=== PATIENT | female | born 1985 | race Caucasian/White ===

== ENCOUNTER 2017-09-04 11:57 | Day surgery (SDC) | payer OTHER ==
[~2017-09-04] VITALS: Ht 154.9 cm; Wt 54.0 kg
[2017-09-04 13:02] LABS: BASOPHILS % 0.7 % (0.0-2.0); EOSINOPHILS % 0.6 % (0.0-5.0); HEMATOCRIT. 40.4 % (36.0-48.0); HEMOGLOBIN. 13.8 g/dL (12.0-16.0); MEAN CORPUSCULAR HEMOGLOBIN 30.2 pg (28.0-32.0); MEAN CORPUSCULAR VOLUME 88.5 fL (81.0-99.0); MEAN PLATELET VOLUME 7.8 fl (7.4-10.4); MONOCYTES % 6.6 % (2.0-8.0); NEUTROPHILS % 59.1 % (40.0-76.0); PLATELET 258 x1000/uL (130-400); RED BLOOD CELL COUNT 4.57 mill/uL (4.2-5.4); RED CELL DISTRIBUTION WIDTH 12.9 % (11.6-14.6)
[2017-09-04 13:04] LABS: CLARITY URINE CLEAR (CLEAR); COLOR URINE YELLOW (YELLOW); GLUCOSE URINE NEGATIVE (NEGATIVE); KETONES URINE NEGATIVE (NEGATIVE); LEUKOCYTE ESTERASE URINE NEGATIVE (NEGATIVE); NITRITE URINE NEGATIVE (NEGATIVE); OCCULT BLOOD URINE TRACE (NEGATIVE); PH URINE 5.5 (4.5-8.0); PROTEIN URINE NEGATIVE (NEGATIVE); SPECIFIC GRAVITY URINE 1.026 (1.005-1.030); UROBILINOGEN URINE 0.2 E.U./dL (0.2-1.0)
[2017-09-04 13:08] LABS: UCG SCREEN NEGATIVE
[2017-09-04 13:13] LABS: INR 1.1; PARTIAL THROMBOPLASTIN TIME 27.2 sec (23.4-31.0); PROTHROMBIN TIME 11.1 sec (9.4-11.6)
[2017-09-04] MEDS ORDERED: SODIUM CHLORIDE 0.9% 1,000 ML IV SCH ×2 (13:30→17:00)
[2017-09-04] MEDS ORDERED: MIDAZOLAM HCL 2 MG/2 ML VIAL ONE (15:55)
[2017-09-04] MEDS ORDERED: ROCURONIUM BROMIDE 10MG/ML VIAL 5ML IV ONE (15:56)
[2017-09-04] MEDS ORDERED: LIDOCAINE HCL 1% 20ML VIAL (Pyxis) INJ ONE (15:56)
[2017-09-04] MEDS ORDERED: FENTANYL CITRATE/PF 50MCG/ML 2ML VIAL ONE (15:56)
[2017-09-04] MEDS ORDERED: PROPOFOL 200MG/20ML VIAL IV ONE (15:56)
[2017-09-04] MEDS ORDERED: METOCLOPRAMIDE HCL 10MG/2ML VIAL ONE (16:22)
[2017-09-04] MEDS ORDERED: ONDANSETRON HCL 4MG/2ML VIAL ONE (16:22)
[2017-09-04] MEDS ORDERED: DEXAMETHASONE 4MG/ML 1ML VIAL ONE (16:22)
[2017-09-04] MEDS ORDERED: CEFAZOLIN SODIUM 1000MG/VIAL ONE (16:23)
[2017-09-04] MEDS ORDERED: SKIN ADHESIVE 0.7 GM EA TOP ONE (16:45)
[2017-09-04] MEDS ORDERED: ONDANSETRON HCL 4MG/2ML VIAL IV PRN (17:00)
[2017-09-04] MEDS ORDERED: MEPERIDINE HCL/PF 25MG/ML CPJ IV PRN (17:00)
[2017-09-04] MEDS ORDERED: HYDROMORPHONE HCL/PF 2MG/ML CPJ IV PRN (17:00)
[2017-09-04 17:36] VITALS: BP 110/69
== END 2017-09-04 18:30 ==
LOC: OR 11:57
PROVIDERS: ATTEND Obstetrics & Gynecology Obstetrics
DX: Z30.2 Encounter for sterilization (principal); Z72.89 Other problems related to lifestyle; Z98.890 Other specified postprocedural states
CPT/HCPCS: 36415; 58661; 81001; 81025; 85025; 85610; 85730; 88302; C1725; G0168; J0690; J1100; J2175; J2250; J2405; J2765; J3010; J3490; J7030; J2704